=== PATIENT | female | born 1950 | race Caucasian/White ===

== ENCOUNTER 2025-04-09 10:15 | Day surgery (SDC) | payer OTHER ==
[2025-04-08 11:45] LABS: Absolute Lymphocytes (CBC) 1.1 K/uL (0.7-4.9); Hematocrit 39.3 % (36.0-45.0); Hemoglobin 13.1 g/dL (12.0-15.0); MCH 30.0 pg (27.0-35.0); MCHC 33.3 g/dL (32.0-36.0); MCV 90.3 fL (80-100); MPV 9.6 fL (7.6-11.3); Nucleated RBC Absolute Count 0.0 (0-0); Nucleated Red Blood Cells % 0.0 % (0-0); RBC Red Blood Cell Count 4.35 M/uL (3.86-4.86); White Blood Count 6.60 thou/uL (4.3-10.9)
[2025-04-08 12:02] LABS: Anion Gap 8.5 mEq/L (5.0-15.0); BUN Blood Urea Nitrogen 15.0 mg/dL (7-18); Glucose Level 96.0 mg/dL (74-106); Potassium 4.5 mEq/L (3.5-5.1)
[2025-04-09] MEDS: Ringers Lactate 1,000 ML IV ONE (10:45)
[2025-04-09] MEDS ORDERED: ONDANSETRON 4 MG/2 ML VIAL ONE (11:44)
[2025-04-09] MEDS ORDERED: FENTANYL CITR 100 MCG/2 ML ONE (11:45)
[2025-04-09] MEDS ORDERED: LIDOCAINE 2% MPF 5 ML VIAL ONE (11:45)
[2025-04-09] MEDS: CEFAZOLIN SODIUM 2 GM/VIAL ONE (12:14)
[2025-04-09] MEDS: LIDOCAINE HCL/EPINEPHRINE 20 ML MDV ONE (12:28)
--- NOTE | 2025-04-09 12:41 | P.OP ---
Preoperative diagnosis: RIGHT Lower Extremity Traumatic Wound Postoperative diagnosis: RIGHT Lower Extremity Traumatic Wound Primary procedure: Debridement of RIGHT Lower Extremity Traumatic Wound Anesthesia: GETA + Local Estimated blood loss: <5cc Specimen: Cultures, Debridement Tissues Findings: 7.6 x 5.8 x 0.2 cm wound of anterior right lower extremity Complications: None Transferred to: Recovery Room Condition: Good
[2025-04-09] MEDS: HYDROMORPHONE HCL 1 MG/ML INJ ONE (13:18)
[2025-04-09] MEDS: HYDROCODONE/APAP 5/325 MG TAB ONE (13:55)
[2025-04-09 14:57] VITALS: BP 153/62; TEMP 97; O2SAT 97
--- NOTE | 2025-04-09 15:49 | OP ---
Date of Procedure: 04/09/2025 Surgeon: Bossman Daniel MD, Preoperative Diagnosis: Right lower extremity chronic traumatic wound. Postoperative Diagnosis: Right lower extremity chronic traumatic wound. Procedure Performed: Debridement of right lower extremity chronic traumatic wound. Anesthesia: General endotracheal plus local with 1% lidocaine with epinephrine. Estimated Blood Loss: Less than 5 cc. Specimens: Culture sent for both aerobic and anaerobic speciation, debridement of tissue. Findings: Approximately 7.6 x 5.8 x 0.2 cm wound to the anterior right lower extremity. Complications: None. Disposition: Patient was transferred to recovery room in good condition. Procedure In Detail: After informed consent was obtained, the patient was brought to the operating r oom, prepped and draped in the usual sterile fashion. After adequate anesthesia was achieved, I made a curvilinear incision around all nonviable tissue down to subcutaneous tissue using 15 blade. Ulti mately after the tissue was removed, I sent it for pathologic examination. The area was cultured wit h some discolored fluid was appreciated that was slightly murky. It was cultured both for both aerob ic and anaerobic speciation. I then used a curette to clear out all nonviable tissue. The area was copiously irrigated. Hemostasis was achieved with electrocautery. I irrigated one last time and the n packed with Vashe soaked gauze and sterile dressing was placed over top. The patient tolerated the procedure well without incident or complication, transferred to PACU in good condition. All counts were correct at the end of the case. DAMI/RENETTA Voice ID: [id number] Report ID: [id number]
== END 2025-04-09 14:50 | disposition home or self-care (01) ==
LOC: OR 10:15
PROVIDERS: ATTEND Surgery
PROC: 0JBN0ZZ Excision of Right Lower Leg Subcutaneous Tissue and Fascia, Open Approach (ICD-10-PCS; principal; 2025-04-09 12:15)
DX: L97.813 Non-pressure chronic ulcer of other part of right lower leg with necrosis of muscle (principal)
CPT/HCPCS: 93005; 87070; 85025; 80048; 36415; 87205; 88304; 87075; 11042; 11045 ×2; J2704; J2003; J3010; J1100; J1171; J2405; J7120